=== PATIENT | female | born 1935 | race African-American/Black ===

== ENCOUNTER 2016-08-12 11:46 | Emergency (ER) | payer MEDICARE, MEDICAID ==
[~2016-08-12] VITALS: Ht 162.6 cm; Wt 64.0 kg
[2016-08-12 12:13] VITALS: BP 173/90
[2016-08-12] MEDS ORDERED: METO-298 PO (12:19)
[2016-08-12] MEDS ORDERED: MINO2.5T19 GT (12:19)
[2016-08-12] MEDS ORDERED: AMLO5TAB4 PO (12:19)
[2016-08-12] MEDS ORDERED: COLC0.6T66 PO (12:19)
[2016-08-12] MEDS ORDERED: OLME40TA12 PO (12:19)
== END 2016-08-12 16:50 | disposition left against medical advice (07) ==
LOC: ER 15:40
DX: Z53.21 Procedure and treatment not carried out due to patient leaving prior to being seen by health care provider (principal)